=== PATIENT | male | born 1960 | race Caucasian/White ===

== ENCOUNTER 2023-03-13 20:48 | Emergency (ER) | payer BC, SELFPAY ==
[2023-03-13 20:52] VITALS: BP 158/84; PULSE 75; RESP 16; TEMP 36.4; O2SAT 94; BMI 31.4
--- NOTE | 2023-03-13 21:15 | ED_ITS ---
HPI - Extremity Injury (Lower) General Time Seen by Provider: 21:15 Date Seen: 03/13/23 Chief Complaint: Extremity Pain/Injury, Lower Stated Complaint: Twisted R leg 1 week ago and no mobility Time Seen by Provider: 03/13/23 21:14 Source: patient Mode of arrival: ambulatory Limitations: no limitations History of Present Illness HPI Narrative: 62-year-old male who presents today with leg pain. Patient stepped off a combine about a week ago in twisted his right leg. Gradually worsening knee pain since then. Notes pain on the outside of the knee but also on the inside, worse with straightening the leg and difficulty walking, has been using crutches for the last 2 days. Has taken ibuprofen 5 tablets once a day to help with pain, also has used to TENS. Notes some right low back pain but has a history of low back pain. Denies any numbness or tingling in the leg, no bowel or bladder incontinence. Related Data Home Medications Medication Instructions Recorded Confirmed albuterol sulfate 90 mcg/actuation g inhalation 03/15/22 03/15/22 aerosol inhaler amlodipine 5 mg tablet 5 mg PO DAILY 03/15/22 03/13/23 prednisone 50 mg tablet 50 mg PO DAILY 03/15/22 03/15/22 simvastatin 20 mg tablet 20 mg PO QDAY 03/15/22 03/13/23 Previous Rx's Medication Instructions Recorded albuterol sulfate 2.5 mg/0.5 mL 2.5 mg (0.5 mL) inhalation Q4H PRN 03/15/22 solution for nebulization shortness of breath or wheezing #30 ea nebulizers (Altera Nebulizer #1 ea 03/15/22 System) prednisone 20 mg tablet See Rx Instructions PO QDAY #9 tabs 03/15/22 Allergies Allergy/AdvReac Type Severity Reaction Status Date / Time Penicillins Allergy Mild Rash Verified 03/15/22 12:04 [facility] Medical History COPD exacerbation Wheezing Social History Smoking Status: Heavy tobacco smoker What tobacco products do you use: cigarettes Smoking packs per day: 0.5 Smoking cigarettes per day: 10.0 Years smoked: 40 Smoking pack-years: 20.00 Do you use any of these nicotine containing products: None Second hand tobacco smoke exposure: No How often do you have a drink containing alcohol: 4 or more times a week How many standard drinks containing alcohol do you have on a typical day: 3 or 4 AUDIT-C Alcohol total score: 5 Non-prescribed substance use: denies use Exam Narrative: Exam Narrative: General: well nourished , NAD Head: Atraumatic and normocephalic ENT: External ears and external nose are normal Eyes: Conjunctiva clear, pupils are equal reactive, external ocular motions are intact Neck: Full spontaneous range of motion of the neck Lungs: No respiratory distress Musculoskeletal: Tenderness along the course of the lateral collateral ligament on the right, mild swelling but no large joint effusion, no redness or warmth of the knee. Mild tenderness of the insertion of the outer head of the gastrocnemius. No swelling of the lower leg, sensation is intact. Neurologic: No gross focal neurologic deficits Skin: No rashes Psych: Mood and affect are appropriate Const: Vital Signs, click to edit/add: Vital Signs - 24 hr 03/13/23 20:52 03/13/23 21:53 Temperature 97.5 F L Pulse Rate [Pulse Oximeter] 75 71 Respiratory Rate 16 18 Blood Pressure [Le ft Upper Arm] 158/84 H 142/94 H Pulse Oximetry 94 93 Oxygen Delivery Me thod Room Air Room Air Course Course ED Course: Patient seen and examined, reviewed prior urgent care visit from February 2022 at which time patient was seen with COPD exacerbation with no evidence for pulmonary embolism and was discharged. Patient presents today with some pain of the right knee and lower leg after twisting about a week ago. Gradual onset of pain which is been at its worst in the last couple of days. On exam, no joint effusion, no redness or warmth of the knee to suggest septic arthritis or crystal arthropathy. Tenderness along the lateral collateral ligament and at the insertion of the outer head of the gastrocnemius. Pain with attempted anterior drawer sign as well as varus and valgus load which limits exam. Symptoms are most consistent with strain, x-rays ordered to evaluate for bony injury which is little bit less likely. If x-rays negative, patient can continue crutch walking, will be discharged with medication for pain and follow- up with orthopedics. Reevaluation(s) Time of Reevaluation #1: 22:46 Reevaluation #1: X-ray independently interpreted by me negative for acute findings. Patient is stable for discharge with outpatient follow-up. Vital Signs Vital signs: Initial Vital Signs Temperature 97.5 F L 03/13/23 20:52 Temperature Source Temporal Artery Scan 03/13/23 20:52 Pulse Rate 75 03/13/23 20:52 Respiratory Rate 16 03/13/23 20:52 Blood Pressure 158/84 H 03/13/23 20:52 Blood Pressure Mean 108 H 03/13/23 20:52 Blood Pressure Position Sitting 03/13/23 20:52 Pulse Oximetry 94 03/13/23 20:52 Oxygen Delivery Method Room Air 03/13/23 20:52 Vital Signs Temperature 97.5 F L 03/13/23 20:52 Pulse Rate 75 03/13/23 20:52 Respiratory Rate 16 03/13/23 20:52 Blood Pressure 158/84 H 03/13/23 20:52 Pulse Oximetry 94 03/13/23 20:52 Oxygen Delivery Method Room Air 03/13/23 20:52 Temperature 97.5 F L 03/13/23 20:52 Pulse Rate 71 03/13/23 21:53 Respiratory Rate 18 03/13/23 21:53 Blood Pressure 142/94 H 03/13/23 21:53 Pulse Oximetry 93 03/13/23 21:53 Oxygen Delivery Method Room Air 03/13/23 21:53 Medications Administered Medications: Generic Name Dose Route Start Last Admin Trade Name Freq PRN Reason Stop Dose Admin Oxycodone HCl 5 mg 03/13/23 21:32 03/13/23 21:39 Oxycodone 5 Mg Tablet PO 03/13/23 21:33 5 mg ONCE ONE Administration Discharge Plan Discharge Clinical Impression: Right knee sprain, Sprain of LCL (lateral collateral ligament) of knee Patient Disposition: Home, Self-Care Instructions: Knee Sprain (ED), Crutch Instructions (ED) Additional Instructions: Use crutches as needed with weight-bearing as tolerated Ice and you may continue using your TENS unit Follow-up with the orthopedic clinic, call [phone] to make an appointment. Activity Level: Weight Bearing as Tolerated Prescriptions: No Action prednisone 50 mg tablet 50 mg PO DAILY Patient Comments: TAKE 1 TABLET BY MOUTH DAILY albuterol sulfate 90 mcg/actuation HFA aerosol inhaler inhalation Patient Comments: USE EVERY 4 HOURS NEEDED amlodipine 5 mg tablet 5 mg PO DAILY Patient Comments: TAKE 1 TABLET BY MOUTH DAILY simvastatin 20 mg tablet 20 mg PO QDAY Patient Comments: TAKE 1 TABLET BY MOUTH AT BEDTIME prednisone 20 mg tablet See Rx Instructions PO QDAY Qty: 9 0RF Rx Instructions: orally every day; 2 tabs daily for 3 days then 1 tab daily for 3 days albuterol sulfate 2.5 mg/0.5 mL solution for nebulization 2.5 mg inhalation Q4H PRN (Reason: shortness of breath or wheezing) Qty: 30 0RF (DME) nebulizers [Altera Nebulizer System] Misc See Rx Instructions .Route Qty: 1 0RF Rx Instructions: As directed Follow Up/Referrals: Provider,Not a Local [Primary Care Provider] - Stand Alone Forms: MyHealth Info Instructions
[2023-03-13] MEDS: OXYCODONE 5 MG TABLET PO (21:39)
[2023-03-13 21:53] VITALS: BP 142/94; PULSE 71; RESP 18; O2SAT 93
--- NOTE | 2023-03-13 21:58 | CRLHL7_ITS ---
For Patients: As a result of the Cures Act, medical imaging exams and procedure reports are released immediately into your electronic medical record. You may view this report before your referring provider. If you have questions, please contact your health care provider. Indication: Trauma. Technique: Right knee, 3 views. Comparison: None. Findings/Impression: Bones: Alignment is normal. No displaced fractures or bone lesions. Joint spaces: Moderate tricompartmental osteoarthritis. Soft tissues: Unremarkable. Dictated by Carmine Zazueta MD @ 03/13/2023 10:34:03 PM (Electronically Signed)
== END 2023-03-13 23:00 | disposition home or self-care (01) ==
LOC: ED 21:45
PROVIDERS: Emergency Provider Family Medicine
DX: S83.421A Sprain of lateral collateral ligament of right knee, initial encounter (principal); W30.89XA Contact with other specified agricultural machinery, initial encounter
CPT/HCPCS: 73562; 99283; 99284; A9270